=== PATIENT | female | born 2005 | race Caucasian/White ===

== ENCOUNTER 2024-08-30 12:36 | Emergency (ER) | payer OTHER ==
[~2024-08-30] VITALS: Ht 157.5 cm; Wt 60.1 kg
[2024-08-30 12:37] VITALS: TEMP 98.3
--- NOTE | 2024-08-30 16:35 | Physician Documentation ---
History of Present Illness ~ Chief Complaint: Neck pain Stated Complaint: SYNCOPE Time Seen by MD: 16:19 OK to notify your PCP?: Yes Source: patient Mode of Arrival: POV Exam Limitations: no limitations HPI This is a 19-year-old female who comes in complaining of left-sided neck pain. The patient states she was lifting a heavy cooler full of water into the back of the truck when she has a sudden onset of pain in the left side of the neck. She states she felt like she pinched a nerve and has pain that now radiates down to the trapezium, shoulder and alf down the lateral biceps. She denies blunt trauma to the area. She denies history of neck issues. She states that is she went to drink some water when she had another exacerbation of the pain causing her to have a brief syncopal episode. She states when she fell she hit her tailbone which isn't causing her pain as well. She denies distal numbness tingling weakness. Physical Exam Vital Signs: Temperature: 98.3, Source: Temporal, Heart Rate: 81, Respiratory Rate: 16, BP: 132/92, Pulse Oximetry: 100, Weight: 60.150 Pulse Oximetry Reflects: adequate oxygenation General Appearance: alert, WD/WN, other (The patient is tearful secondary to the pain.) Neck The patient is splinting the neck. She has decreased range of motion in all movements secondary to subjective pain. There is tenderness to palpation of the left paraspinal muscles extending into the trapezius with spasm. No midline step-off deformity or point tenderness of the cervical spine. The patient has no distracting injuries and is not intoxicated. EENT: normal ENT inspection Respiratory: no respiratory distress Chest: no accessory muscle use Back There is tenderness to palpation over the low midline lumbar spine over the sacrum and coccyx area. No obvious contusion. Neurologic: oriented x4, full time staff interpreter II-XII nml as tested Motor / Sensory: no motor deficit Progress Results/Orders Results/Orders Orders - SHIRLEY MOTTA Ct Cervical Spine (08/30/24 16:41) Sacrum & Coccyx (08/30/24 16:35) Completed Orders - SHIRLEY MOTTA Ct Cervical Spine (08/30/24 16:41) Dexamethasone Inj (Decadron 10mg/Ml Inj) (08/30/24 16:28) Ketorolac Trometh 15mg/Ml Vial (Toradol (08/30/24 16:30) Hydrocodone/Apap 5/325mg Tab ([place] 5/32 (08/30/24 16:30) Sacrum & Coccyx (08/30/24 16:35) Medications Received in ER Medications (Trade) Dose Ordered Sig/Thanh Route PRN Reason Start Time Stop Time Status Last Admin Dose Admin (Decadron 10mg/ ml inj) 10 mg ONCE STAT IM 08/30/24 16:28 08/30/24 16:31 DC 08/30/24 17:07 10 MG (Toradol injection) 30 mg ONCE ONCE IM 08/30/24 16:30 08/30/24 16:31 DC 08/30/24 17:14 30 MG ([place] 5/325mg tablet) 1 tab ONCE ONCE PO 08/30/24 16:30 08/30/24 16:31 DC 08/30/24 17:05 1 TAB Vital Signs 08/30/24 08/30/24 08/30/24 08/30/24 12:37 16:54 17:05 17:14 Temp 98.3 Pulse 81 Resp 16 18 16 16 B/P (MAP) 132/92 Pulse Ox 100 EKG/XRAY/CT/US/VASC/MRI Bone/Soft Tissue X-Ray (Spine) : Interpreted By: self Additional Comment X-rays sacrum and coccyx interpreted by me two view: No obvious fracture or malalignment. Soft tissues were unremarkable. CT : Interpreted By: self CT: C-spine Impression CT cervical spine interpreted by me: No obvious fracture. Disc spaces are will maintained. Soft tissues are unremarkable. Medical Decision Making Findings Images of the cervical spine and the sacrum/coccyx were unremarkable. I gave the patient injection of Decadron 10 mg IM, 30 mg of Toradol IM and a p.o. [place]. The patient now feels and looks much more relaxed. I suspect she that has slight disc herniation of the left side of the cervical spine causing spasm. We are going to send the patient home on a burst dose of prednisone 50 mg once a day for the next four days, Robaxin muscle relaxer and I will give her some [place] for breakthrough pain. Follow up with the primary care physician for recheck in the next one or two days. Return to the ER for any worsening or concerning symptoms. Additional Comment Disc herniation of the cervical spine. Muscle spasm of the cervical spine. Daniel bt vertebral artery dissection. Doubt fracture. Departure Disposition: HOME / SELF CARE / HOMELESS Impression: Primary Impression: Spasm of cervical paraspinous muscle Condition: Stable Discharge Instructions: Cervical Sprain Additional Instructions: Take all medications as prescribed. Follow up with the primary care physician for recheck in the next one or two days and return to the ER for any worsening or concerning symptoms. Referrals: NO PRIMARY CARE PROVIDER (PCP) Prescriptions Hydrocodone Bit/Acetaminophen 5/325 MG ([place] 5/325 MG) 5 Mg/325 Mg Tablet 1 TAB PO Q4H PRN for moderate or severe pain, #20 TAB Prov: SHIRLEY MOTTA 08/30/24 Methocarbamol (Methocarbamol) 750 Mg Tablet 1 TAB PO Q8H for Muscle spasm, #20 TAB 0 Refills Prov: SHIRLEY MOTTA 08/30/24 Prednisone (Prednisone) 50 Mg Tablet 1 TAB PO DAILY for 4 Days, #4 TAB 0 Refills Prov: SHIRLEY MOTTA 08/30/24 Signature Scribe Signature: No scribe Attestation: The note accurately reflects work and decisions made by me.Shirley SHEPHERD 08/30/24 18:11 SHIRLEY MOTTA Aug 30, 2024 16:35
--- NOTE | 2024-08-30 16:59 | RADIOLOGY REPORT ---
Indication: neck injury/pain Technique: CT axial images of the cervical spine are obtained without contrast. Coronal and sagittal reformats were obtained. Radiation Dose Information: CTDI volume is 15 mGy. Dose-length product is 261 mGy*cm Comparison: None FINDINGS: The cervical vertebral body heights are maintained. Cervical alignment is maintained. There is no si gnificant disc space narrowing. No prevertebral edema. Facet articulations are in tact. . The atlanto occipital, atlantoaxial articulations are intact. IMPRESSION: Negative CT of the cervical spine for acute osseous abnormality.
[2024-08-30] MEDS: HYDROcodone/acetaminophen 5mg/325mg tablet PO ONE (17:05)
[2024-08-30] MEDS: dexamethasone sod phosphate 10mg/ml inj IM STA (17:07)
[2024-08-30] MEDS: ketorolac trometh 15mg/ml vial 15 MG/ML ML IM ONE (17:14)
[2024-08-30] MEDS ORDERED: METH-798 PO (18:10)
[2024-08-30] MEDS ORDERED: PRED50TA PO (18:10)
[2024-08-30] MEDS ORDERED: HYDR-3965 PO (18:10)
[2024-08-30 19:09] VITALS: BP 126/89; PULSE 85; RESP 15; O2SAT 99
--- NOTE | 2024-08-31 08:49 | RADIOLOGY REPORT ---
CLINICAL INDICATION: trauma TECHNIQUE: 3 radiographic views of the sacrum/coccyx were obtained. Comparison: None FINDINGS/IMPRESSION: There is no evidence of acute fracture or dislocation. The visualized joint space is well maintained. The alignment is anatomical. There is no radiopaque foreign body.
== END 2024-08-30 19:11 | disposition home or self-care (01) ==
LOC: ER 12:37
DX: M62.838 Other muscle spasm (principal)
CPT/HCPCS: 72125; 72220; 96372; 99285; J1100; J1885